=== PATIENT | female | born 1980 | race Caucasian/White ===

== ENCOUNTER 2022-07-10 22:57 | Inpatient (IN) | payer OTHER ==
[~2022-07-10] VITALS: Ht 157.5 cm; Wt 61.2 kg
[2022-07-10] MEDS ORDERED: NITROGLYCERIN OINT 1 GM PACKET TP ONE ×2 (23:15→23:39)
[2022-07-10] MEDS ORDERED: ACETAMINOPHEN ES 500 MG TABLET PO ONE (23:15)
[2022-07-10] MEDS ORDERED: IV NORMAL SALINE 500 ML BAG IV ONE (23:15)
[2022-07-10] MEDS ORDERED: ASPIRIN 81 MG TAB.CHEW PO ONE ×2 (23:15→23:30)
[2022-07-10] MEDS ORDERED: NITROGLYCERIN 0.4 MG/TAB BOTTLE SL ONE ×2 (23:15→23:39)
[2022-07-10] MEDS ORDERED: ASPIRIN 81 MG TAB.CHEW ONE (23:23)
[2022-07-10] MEDS ORDERED: LORAZEPAM 2 MG/1 ML VIAL IV ONE (23:30)
[2022-07-10] MEDS ORDERED: ACETAMINOPHEN ES 500 MG TABLET ONE (23:38)
[2022-07-10 23:39] LABS: HEMATOCRIT 36.4 % (31.2-41.9); MEAN CORPUSCULAR HEMOGLOBIN 28.4 uug (24.7-32.8); MEAN CORPUSCULAR VOLUME 85.1 fL (75.5-95.3); PLATELET COUNT (AUTO) 296 K/uL (179-408)
[2022-07-10 23:40] LABS: *AMPHETAMINE, URINE NEGATIVE (NEGATIVE); *CANNABINOID, URINE NEGATIVE (NEGATIVE); *COCCAINE, URINE NEGATIVE (NEGATIVE); *PHENCYCLIDINE SCREEN,URINE NEGATIVE (NEGATIVE)
[2022-07-10] MEDS ORDERED: LORAZEPAM 2 MG/1 ML VIAL ONE (23:41)
[2022-07-11] LABS: ALANINE AMINOTRANSFERASE 21 U/L (14-59); ALKALINE PHOSPHATASE 21 U/L (50-136); ASPARTATE AMINOTRANSFERASE 16 U/L (15-37); BILIRUBIN,DIRECT 0.1 mg/dL (0.0-0.2); BILIRUBIN,TOTAL 0.1 mg/dL (0.2-1.0); CARBON DIOXIDE 23 mmol/L (21-32); CHLORIDE 102 mmol/L (98-107); CREATININE 0.8 mg/dL (0.6-1.3); GLUCOSE 121 mg/dL (74-106); UREA NITROGEN, BLOOD 10 mg/dL (7-18)
[2022-07-11 00:02] LABS: POTASSIUM 2.8 mmol/L (3.5-5.1)
[2022-07-11] MEDS ORDERED: METOPROLOL TARTRATE 5 MG/5 ML VIAL IVP ONE ×4 (00:06→03:21)
[2022-07-11] MEDS ORDERED: POTASSIUM CHLORIDE 20 MEQ TAB.PRT.SR PO ONE (00:45)
[2022-07-11] MEDS ORDERED: POTASSIUM CHLORIDE 20 MEQ TAB.PRT.SR ONE (00:59)
--- NOTE | 2022-07-11 02:00 | NUR ---
Pt S/O at bedside.
[2022-07-11] MEDS ORDERED: AZITHROMYCIN IV 500 MG in IV DEXTROSE 5% 250 ML IV ONE (02:15)
[2022-07-11] MEDS ORDERED: AZITHROMYCIN 500MG/ D5W 250ML IVPB **ER PYXIS ONLY IV ONE (02:38)
--- NOTE | 2022-07-11 03:02 | NUR ---
Called [facility] for panel call. Deb Moran application development consultant.
[2022-07-11] MEDS ORDERED: ACETAMINOPHEN 325 MG TABLET PO PRN (03:15)
[2022-07-11] MEDS ORDERED: MAG HYDROX/AL HYDROX/SIMETH 30 ML LIQUID UDC PO PRN (03:15)
[2022-07-11] MEDS ORDERED: DOCUSATE SODIUM 100 MG CAPSULE PO PRN (03:15)
[2022-07-11] MEDS ORDERED: MORPHINE SULFATE 2 MG/1 ML DISP.SYRIN IV PRN ×2 (03:15→09:30)
[2022-07-11] MEDS ORDERED: ONDANSETRON 4 MG/2 ML VIAL IV PRN (03:15)
[2022-07-11] MEDS ORDERED: NITROGLYCERIN 0.4 MG/TAB BOTTLE SL PRN (03:15)
--- NOTE | 2022-07-11 03:42 | NUR ---
Pt was transferred to a hospital bed.
[2022-07-11 06:38] LABS: HEMATOCRIT 37.2 % (31.2-41.9); MEAN CORPUSCULAR HEMOGLOBIN 28.9 uug (24.7-32.8); MEAN CORPUSCULAR VOLUME 86.2 fL (75.5-95.3); PLATELET COUNT (AUTO) 279 K/uL (179-408)
[2022-07-11 06:46] LABS: CREATININE 0.6 mg/dL (0.6-1.3); POTASSIUM 4.3 mmol/L (3.5-5.1)
[2022-07-11 07:02] LABS: BILIRUBIN,TOTAL 0.2 mg/dL (0.2-1.0); MAGNESIUM 2.2 mg/dL (1.8-2.4); PHOSPHOROUS 3.1 mg/dL (2.5-4.9); TOTAL PROTEIN, SERUM 7.8 g/dL (6.4-8.2)
[2022-07-11 07:03] LABS: THYROID STIMULATING HORMONE 1.73 mIU/mL (0.358-3.740)
--- NOTE | 2022-07-11 07:54 | NUR ---
Called the third floor for telemetry bed. Stated that there are no beds available.
[2022-07-11] MEDS ORDERED: ASPIRIN 81 MG TAB.CHEW PO SCH (09:00)
--- NOTE | 2022-07-11 09:00 | NUR ---
EDISON Marie at bedside for patient evaluation
[2022-07-11] MEDS ORDERED: ASPIRIN 81 MG TAB.CHEW ONE (09:41)
[2022-07-11] MEDS ORDERED: LORAZEPAM 2 MG/1 ML VIAL ONE ×2 (09:42→17:53)
[2022-07-11] MEDS: LORAZEPAM 2 MG/1 ML VIAL IV PRN ×2 (09:50→17:57)
--- NOTE | 2022-07-11 12:45 | NUR ---
Patient currently eating lunch
--- NOTE | 2022-07-11 12:59 | NUR ---
Dr Taylor at bedside
--- NOTE | 2022-07-11 16:13 | NUR ---
Echocardiogram conducted at bedside.
--- NOTE | 2022-07-11 22:49 | NUR ---
3rd floor called. pt was given RM# [id number]
--- NOTE | 2022-07-11 23:39 | NUR ---
Called third floor to give report. Gave report to María NOE.
--- NOTE | 2022-07-11 23:50 | NUR ---
Patient was transferred upstairs to rm#[id number]. HASMUKH Daniel made aware of patient's arrival.
--- NOTE | 2022-07-11 23:55 | NUR ---
ADMITTED THIS 42 Y.O.LADY FROM ER. VIA W/CHAIR,NO ACUTE DISTRESS NOTED,DIAGNOSIS OF PALPITATIONS AND TACYCARDIA BETWEEN 90-100.SKIN INTACT.AMBULATORY, ALERT,ORIENTEDX 4.NO C/O CHEST PAIN AT TIME OF ARRIVAL,NEEDS ATTENDED TO. ON TELE SINUS RHYTHMVITAL SIGNS TAKEN AND RECORDED.IV SITE PATENT ON RIGHT AC, PATENT AND INTACT.ADMISSION CARE RENDERED. ,
[2022-07-12] VITALS: BP 136/67
--- NOTE | 2022-07-12 02:19 | NUR ---
CUSTODIAL ASSESSMENT DONE.RESTED FAIRLY WELL.
[2022-07-12 04:00] VITALS: BP 113/60
--- NOTE | 2022-07-12 07:30 | NUR ---
HAD A QUIET NOC, STILL ON TELE SINUS ,IN THE 80s, ENDORSED TO AM NURSE IN FAIR CONDITION.
[2022-07-12 07:38] LABS: CREATININE 0.7 mg/dL (0.6-1.3); POTASSIUM 3.7 mmol/L (3.5-5.1)
[2022-07-12] MEDS ORDERED: LORA-259 PO (07:41)
--- NOTE | 2022-07-12 09:00 | NUR ---
Pt got discharged and stable at that time. Got picked up by her .
== END 2022-07-12 08:50 | disposition home or self-care (01) | DRG 243 ==
LOC: ER 22:57 → TRANSITION 07-11 04:44 → TELE3 07-11 23:01
PROVIDERS: ADMIT Nurse Practitioner Acute Care; ATTEND Nurse Practitioner Acute Care
DX: K21.9 Gastro-esophageal reflux disease without esophagitis (principal); I47.1 Supraventricular tachycardia; E87.6 Hypokalemia; F41.9 Anxiety disorder, unspecified; Z20.822 Contact with and (suspected) exposure to COVID-19; Z86.16 Personal history of COVID-19; R78.5 Finding of other psychotropic drug in blood
CPT/HCPCS: 36415; 71045; 83735; 84100; 84443; 84484; 85025; 93005; 93307; A4663; A9150; G0378; J0456; J2060; J3490; J7040